=== PATIENT | female | born 1995 | race Caucasian/White ===

== ENCOUNTER 2021-05-17 15:04 | Day surgery (SDC) | payer BC ==
[2021-05-17] VITALS (7 sets, daily range): BP systolic 104–124; BP diastolic 57–74; PULSE 74–90; TEMP 98.6–98.7
[~2021-05-17] VITALS: Ht 162.6 cm; Wt 71.5 kg
[2021-05-17] MEDS ORDERED: NIKKI1 TAB PO (16:16)
[2021-05-17] MEDS ORDERED: NORCO 325 MG-51 TAB PO (16:57)
--- NOTE | 2021-05-17 17:50 | NUR ---
1734 PATIENT HERE FROM OR. REPORT TAKEN FROM Katie GRIFFITH RN. PATIENT DENIES ANY PAIN AT THIS TIME. INCISION SITES CDI. DRINKING WATER. FAMILY AT BEDSIDE.
--- NOTE | 2021-05-17 19:30 | NUR ---
Pt able to eat dinner, void and drink fluids without difficulty. Pain medication given but pt states her pain is controlled. Pt able to ambulate to bathroom independtly and clothes changed. Discharge instructions given to pt and family who verbalize their understanding. Stressed importance of calling office tomorrow for followup apt. Pt wheeled out and home with family at this time.
== END 2021-05-17 19:30 | disposition home or self-care (01) ==
LOC: SDCO 15:04 → OB 17:35 → SDCO 17:35
DX: K35.80 Unspecified acute appendicitis (principal)
CPT/HCPCS: OP; J0690; J1100; J2405; J2704; J2710; J3010; J7120

== ENCOUNTER → 2022-12-19 | Outpatient (CLI) | payer OTHER ==
[~2022-12-19] MED LIST: NIKKI1 TAB PO; NORCO 325 MG-51 TAB PO
== END ==
LOC: MHCPAIN 07:41
DX: M54.16 Radiculopathy, lumbar region (principal); M51.26 Other intervertebral disc displacement, lumbar region; M51.36 Other intervertebral disc degeneration, lumbar region
CPT/HCPCS: G0463

== ENCOUNTER → 2023-03-22 | Outpatient (CLI) | payer OTHER | LOC: MHCPAIN 09:22 | DX: M47.817 Spondylosis without myelopathy or radiculopathy, lumbosacral region (principal); M54.50 Low back pain, unspecified | CPT/HCPCS: J0665 ==

== ENCOUNTER → 2023-06-07 | Outpatient (CLI) | payer OTHER ==
[~2023-06-07] MED LIST changes: +Lidocaine PF 2% (20 MG/ML) 5 ML VIAL ONE; +Midazolam 2 MG/2 ML VIAL ONE; +fentaNYL 50 MCG/ML 2 ML VIAL ONE
== END ==
LOC: MHCPAIN 07:50
DX: M47.817 Spondylosis without myelopathy or radiculopathy, lumbosacral region (principal); M54.50 Low back pain, unspecified
CPT/HCPCS: J0665; J2250; J3010